=== PATIENT | female | born 1985 | race Caucasian/White ===

== ENCOUNTER → 2017-01-14 | Outpatient (REF) | payer OTHER | LOC: M LAB REF 14:23 | PROVIDERS: ATTEND Physician Assistant | DX: R50.9 Fever, unspecified (principal) ==

== ENCOUNTER → 2017-01-17 | Outpatient (REF) | payer OTHER, SELFPAY | LOC: M LAB REF 09:38 | PROVIDERS: ATTEND Physician Assistant | DX: J02.9 Acute pharyngitis, unspecified (principal) ==

== ENCOUNTER 2021-04-08 00:25 | Emergency (ER) | payer BC, OTHER ==
[~2021-04-08] VITALS: Ht 167.6 cm; Wt 90.4 kg
[2021-04-08] MEDS ORDERED: ONDANSETRON 4 MG ORAL DISINTEGRATING TAB PO ONE (04:35)
[2021-04-08] MEDS ORDERED: MECLIZINE 25 MG TABLET PO ONE (04:35)
--- NOTE | 2021-04-08 05:44 | REPVR ---
PROCEDURE INFORMATION: Exam: CT Head Without Contrast Exam date and time: 04/08/2021 4:57 AM Age: 35 years old Clinical indication: Dizziness; Additional info: Bppv TECHNIQUE: Imaging protocol: Computed tomography of the head without contrast. Radiation optimization: All CT scans at this facility use at least one of these dose optimization techniques: automated exposure control; mA and/or kV adjustment per patient size (includes targeted exams where dose is matched to clinical indication); or iterative reconstruction. COMPARISON: No relevant prior studies available. FINDINGS: Limitations: Examination is limited by motion artifact. Brain: Normal. No hemorrhage. Unremarkable white matter. No mass effect. Cerebral ventricles: No ventriculomegaly. Paranasal sinuses: Visualized sinuses are unremarkable. No fluid levels. Mastoid air cells: Visualized mastoid air cells are well aerated. Bones/joints: Unremarkable. No acute fracture. Soft tissues: Unremarkable. IMPRESSION: No acute findings. Electronically signed by: Papo Espinosa On 04/08/2021 05:44:14 AM
[2021-04-08 06:03] VITALS: BP 130/75
[2021-04-08] MEDS ORDERED: MECL1TAB31 PO (06:07)
== END 2021-04-08 06:28 | disposition home or self-care (01) ==
LOC: M ED 00:25
DX: H81.01 Meniere's disease, right ear (principal)
CPT/HCPCS: 36415; 70450; 80047; 84702; 99283; Q0162